=== PATIENT | male | born 1945 | race Caucasian/White ===

== ENCOUNTER 2016-09-15 08:16 | Day surgery (SDC) | payer BC ==
[2016-09-15] MEDS ORDERED: LIDOCAINE 2% MDV (20MG/ML) 20ML VIAL IV ONE (14:00)
[2016-09-15] MEDS ORDERED: MIDAZOLAM HCL 2MG/2ML VIAL IV ONE (14:00)
[2016-09-15] MEDS ORDERED: PROPOFOL 10 MG/ML VIAL IV ONE (14:00)
--- NOTE | 2016-09-19 09:44 | Operative Note ---
DATE OF SURGERY: 09/15/2016 REFERRING PROVIDER: Lillian Girffith DO PREOPERATIVE DIAGNOSIS: Personal history of colon cancer. POSTOPERATIVE DIAGNOSES: 1. Colonic diverticulosis. 2. Normal-appearing anastomosis. 3. Hemorrhoids. 4. Anorectal polyp/mass near dentate line. 5. Transverse colon polyps. OPERATION: SURVEILLANCE COLONOSCOPY. PROCEDURE: After informed consent was obtained, the patient was placed in the left lateral decubitus position in the endoscopy suite, sedated and monitored by the Department of Anesthesia. Digital rectal exam revealed no palpable firm mass lesions. A well-lubricated CF-160AL colonoscope was inserted into the rectum and advanced to the cecum. The preparation quality was good. The cecum, ileocecal valve, appendiceal orifice, ascending colon, transverse colon, and descending colon were unremarkable other than scattered diverticula seen throughout the colon, primarily in the right colon and left colon. The descending colon was otherwise unremarkable in that there was a shortened sigmoid colon, presumably from previous resection. The anastomosis demonstrated some visible cami, but otherwise no abnormalities were noted. On forward views of the rectum, there were no abnormalities, but J-turn views did reveal hemorrhoids as well as villous-appearing polypoid mass near the anorectal verge. This appeared to be too close to the hemorrhoidal plexus and was felt deemed unsafe to attempt endoscopic removal at this time. The endoscope was straightened, the rectal ampulla deflated and the endoscope was removed. In addition, there were 2 diminutive transverse colon polyps that were removed with a cold forceps. RECOMMENDATIONS: Will refer the patient to Dr. Alvarez for likely need for transanal resection of the polyp that was seen. We will repeat his colonoscopy in 1 year. As always, thank you for allowing me to participate in the health care of your patients. CC: DO ROLY [place]
== END 2016-09-15 09:54 | disposition home or self-care (01) ==
LOC: HOP 08:16
PROVIDERS: ATTEND Internal Medicine Gastroenterology
DX: Z85.038 Personal history of other malignant neoplasm of large intestine (principal); K57.30 Diverticulosis of large intestine without perforation or abscess without bleeding; D12.3 Benign neoplasm of transverse colon; K64.9 Unspecified hemorrhoids; K62.1 Rectal polyp